=== PATIENT | female | born 1950 | race Caucasian/White ===

== ENCOUNTER 2016-10-12 23:59 | Inpatient (IN) | payer MEDICARE, BC ==
--- NOTE | ~2016-10-12 | CR72 ---
[facility] A Service of [facility] RADIOLOGY TEXT RESULTS PATIENT: GERI SANCHEZ LOCATION: [facility] : 48 UNIT #: [id number] AGE: [address]: Tasha Mehta MD SEX: F ORDER DR: [id number] [facility] [address] [place], [place] [address] [id number] I MR#: [id number] Acc #: [id number] NAME: GERI SANCHEZ. : 1950 SEX: F STUDY DATE/TIME: 10/13/2016 1:33 UNIT: [facility] ROOM: [facility] STUDY DESCRIPTION: CR Chest Single View Portable Attending Physician: Liset Valerio M.D. Ordering Physician: Denny Nj M.D. Primary Care Physician: Denny Bolanos Jr., M.D. MEDICAL IMAGING REPORT This report is preliminary unless electronic signature is present EXAM AP portable chest 10/13/2016 HISTORY Chest pain and bilateral arm pain with bruising tonight. Fell down on driveway. COMPARISON None. FINDINGS There is stable tortuosity and ectasia of the thoracic aorta. Low volume inspiration. No acute airspace disease. Stable mild asymmetric elevation right hemidiaphragm. No pleural effusion or pneumothorax. There is a displaced fracture of the right humeral neck. No definite rib fractures are identified. IMPRESSION 1. Displaced fracture of the right humeral neck. 2. No acute airspace disease. 3. Stable ectasia and tortuosity of the thoracic aorta. Dictated by... Isha Deshpande M.D. THIS IS AN ELECTRONICALLY VERIFIED REPORT Isha Deshpande M.D. at 10/14/2016 10:00 PM [facility]/shraddha TD: 10/13/2016 07:46 JOB #: [id number] [facility] A Service [facility] RADIOLOGY TEXT RESULTS PATIENT: GERI SANCHEZ LOCATION: [facility] : 48 UNIT #: [id number] AGE: [address]: Tasha Mehta MD SEX: F ORDER DR: MEDICAL IMAGING REPORT Page 1 of 1 COPY
--- NOTE | ~2016-10-12 | CO ---
Unit #: [id number] #: [id number] Patient: GERI ALVAREZ [id number] [address] [place], [place] [address] [id number] I MR#: [id number] NAME: GERI ALVAREZ. ROOM: [facility] Age: 65 Sex: F Admission Date: 10/13/2016 : 1950 Attending Physician: Tasha Mehta M.D. Primary Care Physician: Denny Bolanos Jr., M.D. CONSULTATION REPORT CHIEF COMPLAINT Bilateral proximal humerus fractures. HISTORY OF PRESENT ILLNESS Ms. Alvarez is a 65-year-old female who sustained an injury to her bilateral shoulders during a ground level fall on October 12. That evening, she had gone outside to tend to the trash when her cat ran outside. She had picked up the cat and was then headed back inside when the cat jumped out of her arms. She then went to catch the cat again and lost her balance stumbling forward down a slight incline. She ultimately lost balance and fell forward onto her bilateral upper extremities. She was seen in the emergency department where she was diagnosed with bilateral proximal humerus fractures. She is currently examined supine on her hospital bed. She is in slings to the bilateral shoulders. She is complaining of pain in each shoulder which is partially relieved with IV morphine. It is worse with any attempted movement and range of motion of the shoulder. PAST MEDICAL HISTORY 1. Hypertension. 2. Chronic pain disorder. 3. Gastroesophageal reflux. 4. Garza's palsy. 5. Trigeminal neuralgia. 6. Occipital neuralgia. 7. Migraine headache. 8. Essential tremor. PAST SURGICAL HISTORY 1. Right carpal tunnel release. 2. Cholecystectomy. 3. Unspecified bilateral knee surgery. 4. Unspecified lumbar spine surgery. 5. Right shoulder arthroscopic rotator cuff repair. 6. Multiple right ventral hernia repairs. ALLERGIES Reported intolerance to sulfa, Mevacor, oxycodone, and codeine which the latter of which both cause nausea. MEDICATIONS Home medication list is reviewed and includes: 1. Diovan/hydrochlorothiazide. Unit #: [id number] #: [id number] Patient: GERI ALVAREZ 2. Lyrica. 3. Cymbalta. 4. Dulera. 5. Atrovent. 6. Vitamin B12. 7. COQ 10 supplement. 8. Multivitamin. 9. Nfar-pre-vfnnysp potassium supplement. 10. Fish oil. 11. Dymista nasal spray. FAMILY HISTORY Coronary artery disease. SOCIAL HISTORY The patient lives with her and daughter. She has no alcohol or tobacco use. She works in [employer] for [employer]. REVIEW OF SYSTEMS Ten systems are reviewed and negative except as noted in the HPI. PHYSICAL EXAMINATION GENERAL APPEARANCE: Overweight but otherwise healthy-appearing 65-year-old female in slight discomfort but no acute distress. PSYCHIATRIC: Awake, alert, and oriented to person, place, time and situation with normal range of mood and affect. She is appropriately intermittently tearful. HEENT: Normocephalic and atraumatic cranium. Pupils equal, round, and reactive to light. CARDIAC: Regular rate and rhythm. PULMONARY: No increased work of breathing. Symmetric chest rise. ABDOMEN: Obese, nondistended. NEUROLOGIC: Intact median, ulnar, and radial nerve motor and sensory function to the bilateral hands. Musculocutaneous and axillary nerve evaluation is limited secondary to slings and known fracture. SKIN: There is no ecchymosis noted currently. She has slight soft tissue swelling. LYMPATICS: No lymphadenopathy or lymph edema is noted. MUSCULOSKELETAL: She is in slings to the bilateral upper extremities. She is tender over the (1) of the humerus, even to light touch. Further range of motion and exams deferred given the known fractures. DIAGNOSTIC STUDIES LABORATORY: BMP is unremarkable aside from glucose of 158. Hemoglobin 13.4 with a white blood cell count of 5.9. IMAGING: Plain film radiographs reviewed of the left shoulder. She had a left displaced proximal humerus fracture with what appears to be a potentially head-splitting fracture. Plain film radiographs reviewed of the right shoulder. Again, she has a displaced proximal humerus fracture with the shaft translated anterior relative to the head segment, tuberosity segment. Further details limited based on these views. IMPRESSION A 65-year-old female with displaced bilateral proximal humerus fractures. Unit #: [id number] #: [id number] Patient: GERI ALVAREZ PLAN Will obtain a CT scan of both shoulders to evaluate for further detail. Both of these are sufficiently displaced that they will most likely need surgical intervention. The left fracture, in particular, appears to have a head-splitting component and will most likely need an arthroplasty which would be a reverse shoulder arthroplasty. In regard to her right shoulder, there is also significant displacement of a shaft and head segment. She has a history of prior right rotator cuff surgery which may have been a repair. Will further evaluate the morphology of this fracture with CT as well but if she does need an arthroplasty, would again lead towards a reverse shoulder arthroplasty given her history of rotator cuff pathology previously. Will plan for surgical intervention likely this Thursday pending the results of the CT. If she needs an arthroplasty on both shoulders, then we may delay these by two days. At time of discharge, she will need transfer to a subacute rehab facility ultimately. Thank you for the consult. Dictated by... Phi Ontiveros M.D. RADHA/zev TD: 10/13/2016 17:01 JOB #: [id number] CONSULTATION REPORT Page 1 of 1 X Phi Ontiveros MD X CONSULTATION REPORT
--- NOTE | ~2016-10-12 | CR230 ---
[facility] A Service of [facility] RADIOLOGY TEXT RESULTS PATIENT: GERI SANCHEZ LOCATION: [facility] : 46 UNIT #: [id number] AGE: [address]: Tasha Mehta MD SEX: F ORDER DR: [id number] [facility] [address] [place], [place] [address] [id number] I MR#: [id number] Acc #: [id number] NAME: GERI SANCHEZ. : 1950 SEX: F STUDY DATE/TIME: 10/13/2016 1:42 UNIT: C4 ROOM: [facility] STUDY DESCRIPTION: CR Shoulder Min 2 View Rt Attending Physician: Liset Valerio M.D. Ordering Physician: Denny Nj M.D. Primary Care Physician: Denny Bolanos Jr., M.D. MEDICAL IMAGING REPORT This report is preliminary unless electronic signature is present EXAM Right shoulder 3 views 10/13/2016 HISTORY Right shoulder pain. Fell down on driveway tonight. COMPARISON None. FINDINGS Transversely oriented displaced fracture of the right humeral neck. The humeral shaft is displaced in a volar direction with respect to the humeral head. The humeral head remains appropriately located within the glenohumeral fossa. No acromioclavicular or coracoclavicular separation is evident. Imaged right ribs appear intact. IMPRESSION Displaced fracture of the right humeral neck. Humeral head remains appropriately located within the glenohumeral fossa. Dictated by... Isha Deshpande M.D. THIS IS AN ELECTRONICALLY VERIFIED REPORT Isha Deshpande M.D. at 10/14/2016 10:00 PM [facility]/shraddha TD: 10/13/2016 07:48 JOB #: [id number] MEDICAL IMAGING REPORT [facility] A Service [facility] RADIOLOGY TEXT RESULTS PATIENT: GERI SANCHEZ LOCATION: [facility] : 48 UNIT #: [id number] AGE: [address]: Tasha Mehta MD SEX: F ORDER DR: Page 1 of 1 COPY
--- NOTE | ~2016-10-12 | OR ---
Unit #: [id number] #: [id number] Patient: GERI ALVAREZ [id number] [address] [address] [id number] I MR#: [id number] NAME: GERI ALVAREZ. ROOM: [facility] Date of Procedure: 10/15/2016 Admission Date: 10/13/2016 Surgeon: Phi Ontiveros M.D. : 1950 [employer] Coach(s): Kailey Knight APRN, ONFA Attending Physician: Tasha Mehta M.D. Primary Care Physician: Denny Bolanos Jr., M.D. PROCEDURE OPERATIVE NOTE PREOPERATIVE DIAGNOSIS Left four part proximal humerus fracture. POSTOPERATIVE DIAGNOSIS Left four part proximal humerus fracture. PROCEDURE PERFORMED 1. Left reverse shoulder arthroplasty. 2. Left shoulder biceps tenodesis. IMPLANTS 1. DJO Surgical AltiVate size 10 Press-Fit humeral stem with a size 10 cement restrictor. 2. DJO Surgical 32, +4 humeral lathe hand. 3. DJO Surgical P2 base plate with a 32, -4 glenosphere. ANESTHESIA General with interscalene nerve block. ESTIMATED BLOOD LOSS 200 mL. DRAINS Medium Hemovac x1. COMPLICATIONS None apparent. INDICATIONS Ms. Alvarez is a 65-year-old female who sustained an injury to her bilateral shoulders in a ground level fall. She has a comminuted four part proximal humerus fracture on the left with a head splitting component to this. We discussed reversed shoulder arthroplasty. She elects to proceed. So we discussed ORIF versus reverse shoulder arthroplasty. At this point she elects to proceed. Risks, benefits and alternatives have been reviewed. DESCRIPTION OF PROCEDURE The patient was identified in the preoperative holding area. The operative site was marked. Preoperative antibiotics were administered. A preoperative regional anesthetic block was performed. The patient was brought to the operating room, supine on her hospital bed. A general Unit #: [id number] #: [id number] Patient: GERI ALVAREZ anesthetic was induced in the hospital bed and then she was transferred to the operative table. She was positioned on the beach-chair and then placed into the beach-chair position. The left upper extremity was then prepped and draped in sterile fashion. A deltopectoral approach was performed. The cephalic vein was taken laterally with the deltoid. The subdeltoid space was developed and the fracture fragments were readily identifiable. The conjoined tendon was identified, as well as the underlying subscapularis. Tag and sutures were placed in the lesser tuberosity at the subscapularis, as well as in the greater tuberosity. There were multiple comminuted fragments in the greater tuberosity. These were removed. There was a substantial amout of head actually in the lesser tuberosity segment. This was removed with a saw to cut essentially the head segment from the tuberosity. A rongeur was then used to further trim down the lesser tuberosity. The head segment itself was then identified. This was loosely in proximity to the greater tuberosity but was removed off of the greater tuberosity without any need for an osteotome or saw. This was then inspected. Again there had been a split through approximately 25% to 30% of the head. We then continued with our plan for reverse shoulder arthroplasty. Any remaining loose fragments of bone were retrieved from the glenohumeral joint. Attention was then turned to exposure of the humeral shaft. The shaft was sized up to a size 10 handle machine operator. A 12 did not fit slightly between the 10 and 12. We then placed the broaches and we were unable to achieve any satisfactory Press-fit with a size 10 broach but a 12 would not fit. We therefore, elected to plan to cement the humeral stem. As high as 10 cement restrictor was placed. We selected the size 10 cemented and this still gave us room for cement mantle distally. The shaft was then subluxed more inferior and posterior and attention turned to the glenoid. The glenoid was easily exposed given the fractured tuberosities and removed head segment. The labrum was removed circumferentially. The centering hole was then drilled, followed by insertion of reaming tap. We reamed it down to desired depth of bleeding subchondral bone. We then placed the P2 baseplate and achieved excellent purchase. We placed four peripheral locking screws including 26 mm screws superiorly and inferiorly and 14 mm screws anteriorly and posteriorly. The real 32, -4 glenosphere was then packed into place. Attention was then turned back to the humerus. The humerus was prepared for cementing. The cement was mixed and finger packed into the humeral canal. The proximal portion of this was then removed and the bone graft placed around the proximal portion. The humeral stem was then impacted in place and held in desired version while the cement was allowed to cure. We had good fill of bone graft around the proximal stem and no cement was visible here. Once the cement was cured, attention was turned to trialing. We ultimately selected a +4 humeral component. This was impacted in place. Sutures were then passed through the suture holes in the humeral stem for tuberosity repair. The greater and lesser tuberosities were repaired back to a stem, as well as to one another. The arm was taken through a range of motion. The tuberosity was repaired with staple and the shoulder with staple. The wound was then irrigated with pulsatile lavage. A subdeltoid drain was placed. The wound was closed in a layered fashion with 0 Vicryl, 2-0 Vicryl and an running Monocryl on the skin. Steri-Strips and sterile dressings were applied. DISPOSITION Stable to the recovery room. Unit #: [id number] #: [id number] Patient: GERI ALVAREZ Dictated by... Jessica Ramos/kathia TD: 10/16/2016 07:27 JOB #: [id number] PROCEDURE OPERATIVE NOTE Page 1 of 1 X Phi Ontiveros MD X PROCEDURE OPERATIVE NOTE
--- NOTE | ~2016-10-12 | CR132 ---
[facility] A Service of [facility] RADIOLOGY TEXT RESULTS PATIENT: GERI SANCHEZ LOCATION: [place] [address]- : [birth year] UNIT #: [id number] AGE: [address]: Tasha Mehta MD SEX: F ORDER DR: [id number] [facility] [address] [place], [place] [address] [id number] I MR#: [id number] Acc #: [id number] NAME: GERI SANCHEZ. : 1950 SEX: F STUDY DATE/TIME: 10/13/2016 1:56 UNIT: [facility] ROOM: [facility] STUDY DESCRIPTION: CR Forearm 2 View Lt Attending Physician: Liset Valerio M.D. Ordering Physician: Denny Nj M.D. Primary Care Physician: Denny Bolanos Jr., M.D. MEDICAL IMAGING REPORT This report is preliminary unless electronic signature is present EXAM 2 views left forearm. DATE: 10/13/2016 HISTORY Fell on driveway tonight. Bilateral arm pain. FINDINGS Standard lateral view was not obtained. However, no gross elbow joint dislocation is seen and the wrist joint appears intact. No fracture or dislocation or significant osteoarthritic change is identified. IMPRESSION No acute abnormality is seen within the left forearm. Dictated by... Isha Deshpande M.D. THIS IS AN ELECTRONICALLY VERIFIED REPORT Isha Deshpande M.D. at 10/14/2016 10:00 PM [facility]/timbo TD: 10/13/2016 07:37 JOB #: [id number] MEDICAL IMAGING REPORT Page 1 of 1 COPY
--- NOTE | ~2016-10-12 | CT130 ---
[facility] A Service of [facility] & [facility] RADIOLOGY TEXT RESULTS PATIENT: GERI SANCHEZ LOCATION: [facility] 449-01 : [birth year] UNIT #: [id number] AGE: [address]: Tasha Mehta MD SEX: F ORDER DR: [id number] [facility] [address] [place], [place] [address] [id number] I MR#: [id number] Acc #: [id number] NAME: GERI SANCHEZ. : 1950 SEX: F STUDY DATE/TIME: 10/13/2016 17:46 UNIT: [facility] ROOM: [facility] STUDY DESCRIPTION: CT Upper Ext Rt Wo Cont Attending Physician: Tasha Mehta M.D. Ordering Physician: Zaki Norman M.D. Primary Care Physician: Denny Bolanos Jr., M.D. MEDICAL IMAGING REPORT This report is preliminary unless electronic signature is present EXAM CT right shoulder, 10/13 INDICATIONS Right shoulder fracture after fall today. Abnormal radiographs today. Shoulder pain. Patient unable to move arms. TECHNIQUE Axial images were obtained through the right shoulder without contrast. Multiplanar reformats were obtained. Comparison made with radiographs from the same day. This CT exam was performed with one or more of the following radiation dose reduction techniques: Automatic exposure control, adjustment of mA and/or kV according to patient size, and iterative reconstruction. FINDINGS There is an impacted fracture of the proximal humerus. The diaphysis is impacted at the level of the surgical neck. The diaphysis is displaced in the anterior direction relative to the humeral head by nearly one shaft width. There is a comminuted fracture of the humeral head, which involves the articular surface. There is some medial rotation of the humeral head relative to its anatomic location. The fracture extends to involve the greater tuberosity. There is no AC joint separation, although there is some AC joint arthropathy. There is no scapular or glenoid fracture. Lung windows demonstrate presumed bilateral atelectasis. IMPRESSION There is an impacted fracture of the proximal humerus. The predominant fracture is across the surgical neck. The diaphysis is displaced in the anterior direction by nearly one shaft width relative to the rest of the humeral head. The comminuted fracture involves the articular surface and extends through the greater tuberosity. No dislocation is seen, but the [facility] A Service of [facility] RADIOLOGY TEXT RESULTS PATIENT: GERI SANCHEZ LOCATION: [facility] 449-01 : [birth year] UNIT #: [id number] AGE: [address]: Tasha Mehta MD SEX: F ORDER DR: humeral head is rotated medially and probably posteriorly as well relative to its expected anatomic location. No other acute fractures are seen. There is some AC joint arthropathy. Dictated by... Luis Manuel Cali Jr., M.D. THIS IS AN ELECTRONICALLY VERIFIED REPORT Luis Manuel Cali Jr., M.D. at 10/13/2016 10:28 PM [facility]/angelica TD: 10/13/2016 22:11 JOB #: [id number] MEDICAL IMAGING REPORT Page 1 of 1 COPY
--- NOTE | ~2016-10-12 | US6 ---
[facility] A Service of [facility] & [facility] RADIOLOGY TEXT RESULTS PATIENT: GERI SANCHEZ [address] [birth year] UNIT #: [id number] AGE: [address]: Tasha Mehta MD SEX: F ORDER DR: [id number] [facility] [address] [place], [place] [address] [id number] I MR#: [id number] Acc #: [id number] NAME: GERI SANCHEZ. : 1950 SEX: F STUDY DATE/TIME: 10/14/2016 8:09 UNIT: C4B ROOM: [facility] STUDY DESCRIPTION: US Abdominal Limited Attending Physician: Tasha Mehta M.D. Ordering Physician: Tasha Mehta M.D. Primary Care Physician: Denny Bolanos Jr., M.D. MEDICAL IMAGING REPORT This report is preliminary unless electronic signature is present EXAM Right upper quadrant ultrasound, 10/14/2016. HISTORY Elevated LFTs. Admitted for 2 broken shoulders. TECHNIQUE Real-time ultrasonography right upper quadrant performed. FINDINGS The pancreas is obscured by bowel gas artifact. The liver appears of increased echogenicity. This suggests fatty infiltration. No focal hepatic parenchymal abnormality is seen. The portal vein appears grossly patent, but is poorly visualized. The liver is enlarged measuring 22 cm in craniocaudal extent. Status post cholecystectomy. Common bile duct measures up to about 1 cm in diameter, within normal limits, given the prior cholecystectomy. No intrahepatic biliary ductal dilatation. The right kidney measures 9.9 cm in greatest length. No hydronephrosis or nephrolithiasis. No cystic or solid mass lesion and no perinephric fluid collection. IMPRESSION 1. Liver is enlarged, diffusely increased in parenchymal echogenicity consistent with diffuse fatty infiltration. No focal parenchymal abnormality is seen. 2. Status post cholecystectomy. No intrahepatic biliary ductal dilatation. The extrahepatic duct is prominent at about 1 cm in diameter. This is felt to be within normal limits given prior cholecystectomy. Correlate with laboratory data and clinical presentation. 3. Right kidney normal. 4. Pancreas not visualized due to bowel gas obscuration. Pancreas could be further evaluated with CT if it would assist in clinical STS. [facility] A Service of [facility] & [facility] RADIOLOGY TEXT RESULTS PATIENT: GERI SANCHEZ LOCATION: [address] : [birth year] UNIT #: [id number] AGE: [address]: Tasha Mehta MD SEX: F ORDER DR: management. Dictated by... Denny Quinn M.D. THIS IS AN ELECTRONICALLY VERIFIED REPORT Denny Quinn M.D. at 10/15/2016 6:26 PM KEVON/anson TD: 10/14/2016 12:27 JOB #: [id number] MEDICAL IMAGING REPORT Page 1 of 1 COPY
--- NOTE | ~2016-10-12 | CT52 ---
[facility] A Service of [facility] RADIOLOGY TEXT RESULTS PATIENT: GERI SANCHEZ LOCATION: C4B : 48 UNIT #: [id number] AGE: [address]: Tasha Mehta MD SEX: F ORDER DR: [id number] [facility] [address] [place], [place] [address] [id number] I MR#: [id number] Acc #: [id number] NAME: GERI SANCHEZ. : 1950 SEX: F STUDY DATE/TIME: 10/13/2016 2:41 UNIT: [facility] ROOM: [facility] STUDY DESCRIPTION: CT Cervical Spine Wo Cont Attending Physician: Liset Valerio M.D. Ordering Physician: Denny jN M.D. Primary Care Physician: Denny Bolanos Jr., M.D. MEDICAL IMAGING REPORT This report is preliminary unless electronic signature is present EXAM CT cervical spine without contrast DATE: 10/13/2016 HISTORY Headache, neck pain. Bilateral shoulder pain after falling down on driveway tonight. COMPARISON None. PROCEDURE 2 mm noncontrast axial images through the cervical spine. Sagittal and coronal reformatted images were obtained. The CT exam was performed with one or more of the following radiation dose reduction techniques: automatic exposure control, adjustment of mA and/or kV according to patient size, and iterative reconstruction. FINDINGS Multilevel advanced degenerative changes are present within the cervical spine, but no acute cervical spine fracture or subluxation is seen. The craniocervical junction appears intact. Varying degrees of canal or foraminal stenosis are present due to the presence of posterior disc osteophyte formation, facet arthropathy and uncovertebral spurring. Imaged paraspinal soft tissues appear within normal limits. IMPRESSION Moderately advanced degenerative changes of the cervical spine. No acute cervical spine fracture or subluxation is seen. [facility] A Service of [facility] & [facility] RADIOLOGY TEXT RESULTS PATIENT: GERI SANCHEZ LOCATION: B : 48 UNIT #: [id number] AGE: [address]: Tasha Mehta MD SEX: F ORDER DR: Dictated by... Isha Deshpande M.D. THIS IS AN ELECTRONICALLY VERIFIED REPORT Isha Deshpande M.D. at 10/14/2016 10:01 PM [facility]/timbo TD: 10/13/2016 07:53 JOB #: [id number] MEDICAL IMAGING REPORT Page 1 of 1 COPY
--- NOTE | ~2016-10-12 | CT71 ---
[facility] A Service of [facility] RADIOLOGY TEXT RESULTS PATIENT: GERI SANCHEZ LOCATION: [facility] 449-01 : 48 UNIT #: [id number] AGE: [address]: Tasha Mehta MD SEX: F ORDER DR: [id number] [facility] [address] [place], [place] [address] [id number] I MR#: [id number] Acc #: [id number] NAME: GERI SANCHEZ. : 1950 SEX: F STUDY DATE/TIME: 10/13/2016 2:11 UNIT: [facility] ROOM: [facility] STUDY DESCRIPTION: CT Head Wo Contrast Attending Physician: Liset Valerio M.D. Ordering Physician: Denny Nj M.D. Primary Care Physician: Denny Bolanos Jr., M.D. MEDICAL IMAGING REPORT This report is preliminary unless electronic signature is present EXAM CT head without contrast Date: 10/13/2016 HISTORY 65-year-old female who fell on driveway tonight. Headache. Neck pain. Bilateral shoulder pain. COMPARISON Noncontrast CT head 01/02/2006. This CT exam was performed with one or more of the following radiation dose reduction techniques: automatic exposure control, adjustment of mA and/or kV according to patient size, and iterative reconstruction. FINDINGS No acute intracranial hemorrhage, mass lesion, mass effect or midline shift is seen. There is no evidence of acute or evolving infarct. Ventricular configuration is within normal limits. No displaced calvarial fracture is identified. Major paranasal sinuses and mastoid air cells are clear. Mild intracranial carotid artery calcifications are present. IMPRESSION No acute intracranial findings. Dictated by... Isha Deshpande M.D. THIS IS AN ELECTRONICALLY VERIFIED REPORT Isha Deshpande M.D. at 10/14/2016 10:01 PM AYAH/ban [facility] A Service [facility] RADIOLOGY TEXT RESULTS PATIENT: GERI SANCHEZ LOCATION: C4B 449-01 : 48 UNIT #: [id number] AGE: [address]: Tasha Mehta MD SEX: F ORDER DR: TD: 10/13/2016 07:46 JOB #: [id number] MEDICAL IMAGING REPORT Page 1 of 1 COPY
--- NOTE | ~2016-10-12 | OR ---
Unit #: [id number] #: [id number] Patient: GERI ALVAREZ [id number] [address] [address] [id number] I MR#: [id number] NAME: GERI ALVAREZ ROOM: [facility] Date of Procedure: 10/17/2016 Admission Date: 10/13/2016 Surgeon: Phi Ontiveros M.D. : 1950 Attending Physician: Tasha Mehta M.D. Primary Care Physician: Denny Bolanos Jr., M.D. OPERATIVE REPORT PREOPERATIVE DIAGNOSIS Right displaced three-part proximal humerus fracture. POSTOPERATIVE DIAGNOSIS Right displaced three-part proximal humerus fracture. PROCEDURE PERFORMED Right reverse shoulder arthroplasty. IMPLANTS 1. DJO Surgical size 10 cemented Altivate stem with a 36, neutral humeral socket liner. 2. DJO Surgical P2 base plate with a 36, -4 Glenosphere. TEAM MEMBER Kailey Knight. ANESTHESIA General with interscalene block. ESTIMATED BLOOD LOSS 650 mL. DRAINS Medium Hemovac x1. COMPLICATIONS None apparent. INDICATIONS FOR PROCEDURE Ms. Alvarez is a 65-year-old female with bilateral displaced proximal humerus fractures. On the right side, she had a three versus four part fracture. We discussed an ORIF versus reverse shoulder arthroplasty. Her CT scan was inconclusive for determination of the fracture being amenable to fixation versus requiring an arthroplasty. DESCRIPTION OF PROCEDURE The patient was identified in the preoperative holding area. The operative site was marked. A regional anesthetic block was performed. Preoperative antibiotics were administered. The patient was brought to the operating room and placed supine on the operating table. A general anesthetic was induced. The patient was then positioned in the Unit #: [id number] #: [id number] Patient: GERI ALVAREZ beach-chair position. The right upper extremity was prepped and draped in sterile fashion. An incision was made anteriorly over the deltopectoral interval. Dissection was carried down to the subcutaneous tissues to the deltopectoral interval itself. The cephalic vein was retracted medially with the pectoralis major muscle. The subdeltoid space was developed. A self-retaining retractor was placed under the deltoid and pectoralis. The fracture was then inspected. This was not amenable to an open reduction and internal fixation. We elected to proceed with reverse shoulder arthroplasty. The fracture line was completed through the bicipital groove exposing the lesser tuberosity. The head was actually fractured as well with a separate fragment displaced medially and inferiorly. This was retrieved with a pituitary. The remaining portion of the head was in proximity to the greater tuberosity and was removed as well. The tuberosity segments were then debrided back down to smaller fragments. Multiple comminuted fragments of bone were removed as well. Attention was then turned to exposure of the shaft. The shaft was exposed and hand reamed to a size 12. We turned our attention back to the glenoid. Easy glenoid exposure was afforded by the fracture. Retractors were placed and the labrum removed. Any remaining capsular tissue was released to facilitate exposure. We then drilled the centering hole and inserted the reaming tap. We then reamed through the starter and small reamers. The base plate was then inserted and achieved solid purchase. Four peripheral locking screws were placed. We then trialed the components and ultimately selected a 32, -4 Glenosphere. This was impacted in place and the set screw secured. Attention was turned back to the humerus. Final preparations were made for cementing. Additionally, further tagging sutures were then placed in the tuberosities. We had placed 2 FiberTapes around the greater tuberosity and one FiberTape in the lesser tuberosity. A size 12 cement restrictor was then placed in the humeral canal. We then filled the canal with cement followed by bone graft. The stem was then impacted in place with a good rim of bone graft proximally around the stem. The stem was held in desired position until the cement was allowed to cure. The sutures were then passed for the tuberosity repair. The shoulder was then reduced. The greater tuberosity was then secured with the two FiberTape sutures securing the tuberosity to the stem. The lesser tuberosity was then secured with one FiberTape to the stem. The cerclage suture and the medial suture hole of the stem was then used to cerclage the entire construct together. We then finished this with FiberWire suture side to side in the tuberosities. The arm was taken through range of motion. The tuberosity repair was stable. The wound was then irrigated with pulsatile lavage. A subdeltoid drain was placed and the wound was closed with 0 Vicryl, 2-0 Vicryl, and Monocryl in the skin. Steri-Strips and sterile dressings were applied. DISPOSITION Stable to the recovery room. Dictated by... Phi Ontiveros M.D. RADHA/parish TD: 10/17/2016 12:15 Unit #: [id number] #: [id number] Patient: GERI ALVAREZ JOB #: [id number] OPERATIVE REPORT Page 1 of 1 X Phi Ontiveros MD X PROCEDURE OPERATIVE NOTE
--- NOTE | ~2016-10-12 | EKG ---
PATIENT: GERI SANCHEZ UNIT #: [id number] Ventricular Rate: 103 BPM Atrial Rate: 103 BPM P-R Interval: 170 ms QRS Duration: 72 ms Q-T Interval: 332 ms QTC Calculation(Bezet): 434 ms P Jackson: 55 degrees Calculated R Jackson: 15 degrees Calculated T Jackson: 17 degrees Diagnosis Line: Sinus tachycardia Diagnosis Line: Otherwise normal ECG Diagnosis Line: When compared with ECG of 05-FEB-2016 11:13, Diagnosis Line: Criteria for Inferior infarct are no longer Diagnosis Line: Present Diagnosis Line: Confirmed by ERNESTINA BROWN MD ([id number]) on 10/19/2016 Diagnosis Line: 8:27:59 PM INTERPRETING MD: STEPHANIE MOLINA
--- NOTE | ~2016-10-12 | CT127 ---
[facility] A Service of [facility] & [facility] RADIOLOGY TEXT RESULTS PATIENT: GERI SANCHEZ LOCATION: C4B [address] : 48 UNIT #: [id number] AGE: [address]: Tasha Mehta MD SEX: F ORDER DR: [id number] [facility] [address] [place], [place] [address] [id number] I MR#: [id number] Acc #: [id number] NAME: GERI SANCHEZ. : 1950 SEX: F STUDY DATE/TIME: 10/13/2016 17:46 UNIT: C4B ROOM: [facility] STUDY DESCRIPTION: CT Upper Ext Lt Wo Cont Attending Physician: Tasha Mehta M.D. Ordering Physician: Zaki Norman M.D. Primary Care Physician: Denny Bolanos Jr., M.D. MEDICAL IMAGING REPORT This report is preliminary unless electronic signature is present EXAM CT left shoulder, 10/13 INDICATIONS Shoulder fracture after fall today. Shoulder pain. Patient unable to move arms. Abnormal radiographs today. TECHNIQUE Axial images were obtained through the left shoulder without contrast. Multiplanar reformats were obtained. Comparison is made with radiographs from the same day. This CT exam was performed with one or more of the following radiation dose reduction techniques: Automatic exposure control, adjustment of mA and/or kV according to patient size, and iterative reconstruction. FINDINGS As seen on the radiographs, there is a comminuted, impacted proximal humerus fracture on the left side. Primary fracture is at the surgical neck of the humerus. This results in anterior displacement of the diaphysis relative to the humeral head by about one shaft width. There is subsequent posterior rotation of the primary humeral head fragments. The fracture extends through the greater tuberosity as well as through the medial articular surface of the humeral head. Fracture is similar in appearance but probably slightly worsened relative to the fracture on the right side seen by CT today. There is AC joint arthropathy, but there is no AC joint separation. There is no glenohumeral dislocation. There is no scapula or bony glenoid fracture. Note is made of atelectatic changes in the lungs. IMPRESSION Comminuted, impaction fracture of the left proximal humerus. The fracture predominantly extends across the surgical neck. The diaphysis is STS. [facility] A Service of [facility] RADIOLOGY TEXT RESULTS PATIENT: GERI SANCHEZ LOCATION: C4B 449-01 : 48 UNIT #: [id number] AGE: [address]: Tasha Mehta MD SEX: F ORDER DR: displaced in the anterior direction by about one shaft width. Humeral head is markedly comminuted involving the greater tuberosity as well as the medial articular surface. There is some posterior rotation of the humeral head relative to the glenoid. No additional fractures are seen. Dictated by... Luis Manuel Cali Jr., M.D. THIS IS AN ELECTRONICALLY VERIFIED REPORT Luis Manuel Cali Jr., M.D. at 10/13/2016 10:44 PM SADIA/angelica TD: 10/13/2016 22:22 JOB #: [id number] MEDICAL IMAGING REPORT Page 1 of 1 COPY
--- NOTE | ~2016-10-12 | CO ---
Unit #: [id number] #: [id number] Patient: GERI ALVAREZ [id number] [address] [place], [place] [address] [id number] I MR#: [id number] NAME: GERI ALVAREZ. ROOM: [facility] Age: 65 Sex: F Admission Date: 10/13/2016 : 1950 Attending Physician: Tasha Mehta M.D. Primary Care Physician: Denny Bolanos Jr., M.D. CONSULTATION REPORT HISTORY OF PRESENT ILLNESS Ms. Alvarez is a 65-year-old white female who has a history of hypertension, chronic pain, morbid obesity, asthma, who was admitted with bilateral humeral neck fractures after a fall. She was admitted to the hospital on the first of October and this morning underwent repair of left humeral fracture. Postoperative, we were asked to see for postop respiratory failure. She required 50% Venturi mask to maintain saturations of 92%. She was also noted to be slightly hypotensive and was started on IV fluids and Matthew. We were asked to see. 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 PAST SURGICAL HISTORY Cholecystectomy, bilateral breast biopsy, knee surgery, back surgery, ventral hernia repairs, arthroscopic rotator cuff repair. SOCIAL HISTORY The patient lives with and daughter. Lifelong nonsmoker. No alcohol. No illicit drugs. FAMILY HISTORY Coronary artery disease. ALLERGIES Sulfa, Mevacor, oxycodone and codeine cause nausea. CURRENT MEDICATIONS 1. Atrovent nasal spray. 2. Tylenol. 3. Lovenox. 4. Lyrica. 5. Zofran. 6. Diphenhydramine. 7. Phenergan. 8. Dulera. 9. Bisacodyl. 10. Docusate. 11. Milk of Magnesia. 12. MiraLax. 13. Hydromorphone. Unit #: [id number] #: [id number] Patient: GERI ALVAREZ 14. Roxicodone. 15. B12. 16. IV fluids. 17. Keflex. REVIEW OF SYSTEMS Bilateral shoulder pain after a fall. Multiple other surgeries. Chronic pain. GERD. DJD. 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 Hypertension. Trigeminal neuralgia. Occipital neuralgia. Migraines. Essential tremor. Otherwise, review of systems negative. Generally, no shortness of breath. The patient does have a history of low oxygen levels after anesthesia or pain medicines. The patient is unaware if she snores. She does admit to daytime sleepiness. PHYSICAL EXAMINATION GENERAL APPEARANCE: Obese female in no distress. VITAL SIGNS: Blood pressure 124/57. Pulse 115. Respiratory rate 18. Afebrile. O2 sat 92% oximizer. HEENT: Normocephalic, atraumatic. Pupils equal, round, reactive. Sclerae are nonicteric. Nasal passages patent. Posterior pharynx crowded. Mallampati 4. NECK: Thick. Supple. Trachea midline. LUNGS: Fairly clear anterior and laterally. CARDIAC: Regular rate and rhythm. Could not appreciate murmur, rub or gallop. ABDOMEN: Nontender. Bowel sounds present. No hepatosplenomegaly. EXTREMITIES: Without clubbing, cyanosis or edema. Postop left shoulder surgery. DIAGNOSTIC STUDIES LABORATORY: Arterial blood gas: pH 7.38, pCO2 47, pO2 63 on 50% Venturi mask. Chemistries: Sodium 129, potassium 3.8, creatinine 0.9. AST, ALT and alkaline phosphatase elevated at 163, 506 and 133. White count 8,300, hematocrit 34.9. IMPRESSION 1. Acute hypoxemic respiratory failure. 2. Postop left humeral surgery. 3. Asthma. 4. Probable obstructive sleep apnea. 5. Hypotension, currently resolved. 6. Hypertension. PLAN O2. Monitor for sleep apnea. IV fluids. Pulmonary hygiene with incentive spirometer. DuoNeb. DVT prophylaxis. We will follow. Dictated by... Alon Moyer M.D. ANABELL/andrew TD: 10/16/2016 10:20 JOB #: [id number] Unit #: [id number] #: [id number] Patient: GERI ALVAREZ CONSULTATION REPORT Page 1 of 1 X Alon Moyer MD CONSULTATION REPORT
--- NOTE | ~2016-10-12 | CR230 ---
[facility] [[email or web address] A Service of [facility] & [facility] RADIOLOGY TEXT RESULTS PATIENT: GERI SANCHEZ LOCATION: [address] : [birth year] UNIT #: [id number] AGE: [address]: Tasha Mehta MD SEX: F ORDER DR: [id number] [facility] [address] [place], [place] [address] [id number] I MR#: [id number] Acc #: [id number] NAME: GERI SANCHEZ. : 1950 SEX: F STUDY DATE/TIME: 10/17/2016 12:45 UNIT: [facility] ROOM: [facility] STUDY DESCRIPTION: CR Shoulder Min 2 View Rt Attending Physician: Tasha Mehta M.D. Ordering Physician: Tasha Mehta M.D. Primary Care Physician: Denny Bolanos Jr., M.D. MEDICAL IMAGING REPORT This report is preliminary unless electronic signature is present EXAM Right shoulder series, 10/17/2016. HISTORY Postop. TECHNIQUE AP and transscapular views of the right shoulder are presented. FINDINGS Status post right shoulder arthroplasty. Orthopedic hardware normally located and aligned. [place] bony structures show no acute nonsurgical abnormality. Surgical drain in the operative bed. Soft tissue swelling in operative bed. Right internal jugular central venous catheter terminating in the upper superior vena cava. Lung volumes low with bronchovascular crowding. No clear indication of acute disease in the right lung. The visualized right bony thorax is unremarkable. Dictated by... Denny Quinn M.D. THIS IS AN ELECTRONICALLY VERIFIED REPORT Denny Quinn M.D. at 10/17/2016 6:48 PM KEVON/mariana TD: 10/17/2016 15:38 JOB #: [id number] MEDICAL IMAGING REPORT Page 1 of 1 COPY
--- NOTE | ~2016-10-12 | BMI ---
[facility] Nutrition Therapy DATE: 10/13/16 Patient: GERI SANCHEZ Physician: KRISTIE Address: [address] [place] [address] Room/Bed: [address] [place] [address], Zip: [place] [address] Admit Date: 10/13/16 Date of : [birth year] Height: 5 1 Weight: 236 107.1 HIGH BMI NOTE: ANTHROPOMETRICS: HT: 61" WT: 107.1 KG BMI: 44 INTERVENTION: 1. HEART HEALTHY DIET RECOMMENDATIONS: 1. CONTINUE CURRENT DIET IN ORDER TO PROMOTE GRADUAL WEIGHT LOSS. Respectfully, ANGY COHN RD, LD [facility] cc: client file
--- NOTE | ~2016-10-12 | CR72 ---
[facility] A Service of [facility] RADIOLOGY TEXT RESULTS PATIENT: GERI SANCHEZ LOCATION: [place] [address] : [birth year] UNIT #: [id number] AGE: [address]: Tasha Mehta MD SEX: F ORDER DR: [id number] [facility] [address] [place], [place] [address] [id number] I MR#: [id number] Acc #: [id number] NAME: GERI SANCHEZ. : 1950 SEX: F STUDY DATE/TIME: 10/16/2016 10:48 UNIT: [facility] ROOM: [facility] STUDY DESCRIPTION: CR Chest Single View Portable Attending Physician: Tasha Mehta M.D. Ordering Physician: Alon Moyer M.D. Primary Care Physician: Denny Bolanos Jr., M.D. MEDICAL IMAGING REPORT This report is preliminary unless electronic signature is present EXAM Portable chest HISTORY Hypoxia, history of asthma, shortness of air. COMPARISON 10/15/2016 FINDINGS A portable view of the chest demonstrates low lung volumes. Probable small amount of left basilar atelectasis. No sizeable effusions. Heart and mediastinum remarkable for mild aortic atherosclerotic changes and tortuosity. No sizeable effusions or pneumothorax. Left shoulder total arthroplasty. Dictated by... Rayray Storm M.D. THIS IS AN ELECTRONICALLY VERIFIED REPORT Rayray Storm M.D. at 10/16/2016 5:28 PM Dale TD: 10/16/2016 12:17 JOB #: [id number] MEDICAL IMAGING REPORT Page 1 of 1 COPY
--- NOTE | ~2016-10-12 | CR157 ---
[facility] A Service of [facility] RADIOLOGY TEXT RESULTS PATIENT: GERI SANCHEZ LOCATION: [facility] 449-01 : [birth year] UNIT #: [id number] AGE: [address]: Tasha Mehta MD SEX: F ORDER DR: [id number] [facility] [address] [place], [place] [address] [id number] I MR#: [id number] Acc #: [id number] NAME: GERI SANCHEZ. : 1950 SEX: F STUDY DATE/TIME: 10/13/2016 1:36 UNIT: [facility] ROOM: [facility] STUDY DESCRIPTION: CR Humerus Min 2 View Rt Attending Physician: Liset Valerio M.D. Ordering Physician: Denny Nj M.D. Primary Care Physician: Denny Bolanos Jr., M.D. MEDICAL IMAGING REPORT This report is preliminary unless electronic signature is present EXAM 2 views right humerus. DATE: 10/13/2016 HISTORY Right humerus pain after falling down on driveway tonight. COMPARISON: Right shoulder radiographs 10/13/2016 FINDINGS Transversely origin displaced fracture of the right humeral neck. The humeral shaft is displaced in the anterior direction with respect to the humeral head. No gross glenohumeral joint dislocation is identified. Elbow joint appears intact. Imaged right ribs appear intact. IMPRESSION 1. Transversely oriented displaced fracture of the right humeral neck without gross glenohumeral joint dislocation. Elbow joint appears intact. Dictated by... Isha Deshpande M.D. THIS IS AN ELECTRONICALLY VERIFIED REPORT Isha Deshpande M.D. at 10/14/2016 10:00 PM [facility]/timbo TD: 10/13/2016 07:35 JOB #: [id number] MEDICAL IMAGING REPORT Page 1 of 1 COPY
--- NOTE | ~2016-10-12 | CR71 ---
[facility] A Service of [facility] & [facility] RADIOLOGY TEXT RESULTS PATIENT: GERI SANCHEZ LOCATION: [address] : [birth year] UNIT #: [id number] AGE: [address]: Tasha Mehta MD SEX: F ORDER DR: [id number] [facility] [address] [place], [place] [address] [id number] I MR#: [id number] Acc #: [id number] NAME: GERI SANCHEZ. : 1950 SEX: F STUDY DATE/TIME: 10/15/2016 14:38 UNIT: C4B [facility] STUDY DESCRIPTION: CR Chest Single View Attending Physician: Tasha Mehta M.D. Ordering Physician: Tasha Mehta M.D. Primary Care Physician: Denny Bolanos Jr., M.D. MEDICAL IMAGING REPORT This report is preliminary unless electronic signature is present EXAM Portable chest, 10/15 COMPARISON 10/13 HISTORY Shortness of air, acute respiratory failure starting today. FINDINGS A portable view of the chest was obtained. There are low lung volumes without definite infiltrates. There may be some mild left base atelectasis. There is a left shoulder prosthesis present. IMPRESSION Low lung volumes with possible mild left base atelectasis, otherwise no active disease. Dictated by... Tim Knapp M.D. THIS IS AN ELECTRONICALLY VERIFIED REPORT Tim Knapp M.D. at 10/16/2016 7:13 AM CLAUDIA/christiano TD: 10/15/2016 16:23 JOB #: [id number] MEDICAL IMAGING REPORT Page 1 of 1 COPY
--- NOTE | ~2016-10-12 | CR229 ---
[facility] of [facility] RADIOLOGY TEXT RESULTS PATIENT: GERI SANCHEZ LOCATION: [facility] 449-01 : [birth year] UNIT #: [id number] AGE: [address]: Tasha Mehta MD SEX: F ORDER DR: [id number] [facility] [address] [place], [place] [address] [id number] I MR#: [id number] Acc #: [id number] NAME: GERI ASNCHEZ. : 1950 SEX: F STUDY DATE/TIME: 10/13/2016 1:49 UNIT: [facility] ROOM: [facility] STUDY DESCRIPTION: CR Shoulder Min 2 View Lt Attending Physician: Liset Valerio M.D. Ordering Physician: Denny Nj M.D. Primary Care Physician: Denny Bolanos Jr., M.D. MEDICAL IMAGING REPORT This report is preliminary unless electronic signature is present EXAM 3 views of the left shoulder. DATE: 10/13/2016 HISTORY Left shoulder pain after falling on driveway today. FINDINGS There is a transversely origin displaced fracture of the left humeral neck with volar displacement of the humeral shaft with respect to the humeral head. The humeral head appears potentially comminuted. There is a left shoulder joints effusion or hemarthrosis. No gross humeral head dislocation is identified. No acromioclavicular or coracoclavicular separation is seen. Imaged left ribs appear intact. IMPRESSION Displaced fracture of the left humeral neck with suspected comminution of the humeral head. Left shoulder joint effusion or hemarthrosis is thought to be present. No gross glenohumeral dislocation is identified. Dictated by... Isha Deshpande M.D. THIS IS AN ELECTRONICALLY VERIFIED REPORT Isha Deshpande M.D. at 10/14/2016 10:00 PM AYAH/timbo TD: 10/13/2016 07:39 JOB #: [id number] MEDICAL IMAGING REPORT Page 1 of 1 COPY
--- NOTE | ~2016-10-12 | CR72 ---
[facility] A Service of [facility] RADIOLOGY TEXT RESULTS PATIENT: GERI SANCHEZ LOCATION: [facility] CICCU07-21 : [birth year] UNIT #: [id number] AGE: [address]: Tasha Mehta MD SEX: F ORDER DR: [id number] [facility] [address] [place], [place] [address] [id number] I MR#: [id number] Acc #: [id number] NAME: GERI SANCHEZ. : 1950 SEX: F STUDY DATE/TIME: 10/17/2016 12:48 UNIT: [facility] ROOM: [facility] STUDY DESCRIPTION: CR Chest Single View Portable Attending Physician: Tasha Mehta M.D. Ordering Physician: Tasha Mehta M.D. Primary Care Physician: Denny Bolanos Jr., M.D. MEDICAL IMAGING REPORT This report is preliminary unless electronic signature is present EXAM Portable chest x-ray, 10/17/2016. HISTORY Postop. TECHNIQUE AP radiograph of the chest in right anterior oblique projection presented. COMPARISON 10/16/2016 FINDINGS Status post bilateral shoulder arthroplasty. The right shoulder arthroplasty is new today. Please see dedicated right shoulder series for further assessment. Interval placement of right internal jugular central venous catheter that terminates in the upper to mid superior vena cava. Lung volumes are very low, lower than on prior study, with central bronchovascular crowding. There is no compelling evidence of acute infectious or inflammatory disease. No pleural effusion or pneumothorax. No suspicious nodule. Bowel gas pattern in upper abdomen within normal limits. Partial visualization of abdominal surgical mesh markers. Dictated by... Denny Quinn M.D. THIS IS AN ELECTRONICALLY VERIFIED REPORT Denny Quinn M.D. at 10/17/2016 6:48 PM JSK/mariana [facility] A Service of [facility] RADIOLOGY TEXT RESULTS PATIENT: GERI SANCHEZ [facility] [birth year] UNIT #: [id number] AGE: [address]: Tasha Mehta MD SEX: F ORDER DR: TD: 10/17/2016 15:54 JOB #: [id number] MEDICAL IMAGING REPORT Page 1 of 1 COPY
--- NOTE | ~2016-10-12 | CR156 ---
[facility] A Service of [facility] RADIOLOGY TEXT RESULTS PATIENT: GERI SANCHEZ LOCATION: [facility] 449 : [birth year] UNIT #: [id number] AGE: [address]: Tasha Mehta MD SEX: F ORDER DR: [id number] [facility] [address] [place], [place] [address] [id number] I MR#: [id number] Acc #: [id number] NAME: GERI SANCHEZ. : 1950 SEX: F STUDY DATE/TIME: 10/13/2016 1:53 UNIT: [facility] ROOM: [facility] STUDY DESCRIPTION: CR Humerus Min 2 View Lt Attending Physician: Liset Valerio M.D. Ordering Physician: Denny Nj M.D. Primary Care Physician: Denny Bolanos Jr., M.D. MEDICAL IMAGING REPORT This report is preliminary unless electronic signature is present EXAM 2 views left humerus. Date: 10/13/2016 HISTORY Left shoulder pain after falling on driveway tonight. COMPARISON None. FINDINGS There is a transversely oriented fracture of the left humeral neck with displacement of the humeral shaft in a volar direction. Suspected comminution of the humeral head. Suspected left shoulder joint effusion. No gross dislocation is identified. IMPRESSION 1. Displaced fracture of the left humeral neck with suspected comminution of the humeral head. No gross glenohumeral dislocation. 2. Suspected left shoulder joint effusion or hemarthrosis. 3. Elbow joint appears intact. Dictated by... Isha Deshpande M.D. THIS IS AN ELECTRONICALLY VERIFIED REPORT Isha Deshpande M.D. at 10/14/2016 10:00 PM AYAH/ban TD: 10/13/2016 07:38 JOB #: [id number] [facility] A Service [facility] RADIOLOGY TEXT RESULTS PATIENT: GERI SANCHEZ LOCATION: [facility] : 46 UNIT #: [id number] AGE: [address]: Tasha Mehta MD SEX: F ORDER DR: MEDICAL IMAGING REPORT Page 1 of 1 COPY
--- NOTE | ~2016-10-12 | DS ---
Unit #: [id number] #: [id number] Patient: GERI SANCHEZ [id number] [address] [place], [place] [address] [id number] I MR#: [id number] NAME: GERI SANCHEZ. ROOM: 461 Age: 65 Sex: F Admission Date: 10/13/2016 : 1950 Discharge Date: Attending Physician: Tasha Mehta M.D. Primary Care Physician: Denny Bolanos Jr., M.D. DISCHARGE SUMMARY DISCHARGE DIAGNOSES 1. Bilateral humeral neck fractures. 2. Status post fall. 3. Acute postoperative hypercapnic, hypoxic respiratory failure. 4. Acute postoperative blood loss anemia. 5. Hyponatremia, likely hypovolemic. 6. Acute hypovolemic shock requiring Matthew-Synephrine. 7. Transaminitis. 8. Possible obstructive sleep apnea. 9. History of asthma. 10. Mild acute rhabdomyolysis present on admission. 11. Gastroesophageal reflux disease. 12. Hypertension, uncontrolled. 13. Chronic pain. 14. Morbid obesity. 15. Hypocalcemia. 16. Mild protein malnutrition. CONSULTATIONS 1. Dr. Phi Ontiveros. 2. Dr. Moyre. PROCEDURES Bilateral reverse shoulder arthroplasties and left shoulder biceps tenodesis. DIAGNOSTIC STUDIES LABORATORY: WBC 9, hemoglobin 7.9, and platelets 314,000. Sodium 128, potassium 4, creatinine 0.6, albumin 2.4, and calcium 7.9. Acute hepatitis panel negative. IMAGING: Ultrasound of the gallbladder shows liver enlarged, fatty liver, status post cholecystectomy. No intrahepatic ductal dilatation. Extrahepatic duct prominent about 1 cm in diameter felt within normal limits. Chest x-ray shows no infiltrates. ALLERGIES Sulfa and lovastatin. DISCHARGE MEDICATIONS 1. DuoNebs 3 mL inhalation q.4 p.r.n. shortness of breath. 2. Atrovent 1 spray nasally daily. 3. Lyrica 50 mg p.o. b.i.d. 4. Cymbalta 30 p.o. b.i.d. Unit #: [id number] #: [id number] Patient: GERI SANCHEZ 5. Dulera 100 mcg 2 puffs inhalation b.i.d. 6. MiraLax 17 grams daily. 7. Senna 1 tablet p.o. b.i.d. 8. Fish oil 1000 mg p.o. daily. 9. Multivitamin 1 tablet daily. 10. Oxycodone 5 mg q.6 p.r.n. pain. 11. Vitamin B12 at 1000 mcg p.o. daily. HOSPITAL COURSE A 65-year-old admitted because of fall and bilateral humeral fractures. Bilateral humeral fractures. Patient was seen by Orthopedics. Patient had bilateral reverse shoulder arthroplasties on two separate days. Currently, she is following with physical therapy. She is being discharged to rehab. Pain is well controlled. Continue with oxycodone. Acute postoperative hypercapnic, hypoxic respiratory failure. Patient is currently on oxygen. I am going to wean her off. I do not think she needs oxygen, but I am going to check oxygen needs. Acute postop blood loss anemia. Patient's hemoglobin is 7.9. Currently, no active bleeding. Monitor. Acute hypovolemic shock postop. Patient received Matthew-Synephrine and IV fluids. Currently, blood pressure is stable. Transaminitis most likely from acute rhabdomyolysis. Her acute hepatitis panel is negative and ultrasound is negative. Liver enzymes are normalized. Patient's ultrasound shows fatty liver. Hyponatremia, most likely hypovolemic. Patient will have a BMP checked in one week's time at rehab and follow with results. Patient received IV fluids during the hospitalization course. Possible obstructive sleep apnea. Follow with Dr. Moyer as an outpatient. Discussed with family. DISPOSITION Patient will be discharged to rehab. DISCHARGE INSTRUCTIONS BMP to be checked on October 24, 2016, and follow with Jessica at rehab for hyponatremia. Discharge time taken is 32 minutes. Dictated by... Jessica Murphy TD: 10/20/2016 15:19 JOB #: [id number] Unit #: [id number] #: [id number] Patient: GERI SANCHEZ DISCHARGE SUMMARY Page 1 of 1 X Tasha Mehta MD DISCHARGE SUMMARY
--- NOTE | ~2016-10-12 | HP ---
Unit #: [id number] #: [id number] Patient: GERI SANCHEZ [id number] [address] [place], [place] [address] [id number] I MR#: [id number] NAME: GERI SANCHEZ. ROOM: [facility] Age: 65 Sex: F Admission Date: 10/13/2016 : 1950 Attending Physician: Liset Valerio M.D. Primary Care Physician: Denny Bolanos Jr., M.D. HISTORY AND PHYSICAL CHIEF COMPLAINT Mechanical fall with bilateral humeral neck fractures. HISTORY This 65-year-old female with hypertension, chronic pain, morbid obesity, is admitted following bilateral humeral neck fractures. At about 10:30 last evening, the patient went outside to catch her cat. She was bringing the cat inside when she lost her balance and fell forward onto her shoulders bilaterally. Was unable to move her arms, and the left shoulder hurts more than the right with some pain in the left forearm. She presented to this emergency department late last evening where x-rays demonstrate bilateral humeral neck fractures. She was given two doses of morphine 4 mg, along with Zofran and still is in considerable pain. She has a good grasp bilaterally with good radial pulse bilaterally. However, she is not going to be able to care for herself as she is unable to move her arms, and she is experiencing intractable pain. PAST MEDICAL HISTORY 1. Questionable TIA versus complicated migraine in the . 2. Essential hypertension. 3. Chronic pain. 4. GERD. 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 6. Trigeminal neuralgia. 7. Occipital neuralgia. 8. History of migraines. 9. Hemifacial spasm. 10. Paroxysmal hemicranias. 11. Essential tremor. 12. Right carpal tunnel release. 13. Cholecystectomy. 14. Multiple benign breast biopsies. 15. Bilateral knee surgeries. 16. Back surgery. 17. Multiple ventral hernia repairs. 18. Arthroscopic rotator cuff repair. ALLERGIES Intolerant to sulfa, Mevacor. Oxycodone and codeine cause nausea. HOME MEDICATIONS 1. Diovan/hydrochlorothiazide 160/12.5 mg daily. 2. Lyrica 75 mg t.i.d. Unit #: [id number] #: [id number] Patient: GERI SANCHEZ 3. Cymbalta 30 mg, two tablets daily. 4. Dulera 100 mcg, two puffs b.i.d. 5. Atrovent nasal spray. 6. Vitamin B12, 1000 mcg daily. 7. Co Q-10 100 mg daily. 8. Multivitamin daily. 9. Tzci-vhp-tmmwdea potassium. 10. Fish oil 1200 mg daily. 11. Dymista, one spray each nostril b.i.d. FAMILY HISTORY CAD. SOCIAL HISTORY The patient lives with her and daughter. She is a lifelong nonsmoker, does not drink alcohol. REVIEW OF SYSTEMS Notable for bilateral shoulder pain after fall, above mentioned surgeries, chronic pain, DJD, GERD, possible asthma, hypertension, trigeminal and occipital neuralgia, history of migraines and essential tremor. All other systems were reviewed and are otherwise negative. PHYSICAL EXAMINATION GENERAL APPEARANCE: Pleasant, morbidly obese 65-year-old female who looks to be uncomfortable. VITAL SIGNS: Temperature 98, pulse 80, respirations 16, blood pressure 132/89. O2 saturation is 96% on room air. HEENT: Eyes PERRLA. Extraocular muscles are intact. Pharynx - dry mucosal membranes. NECK: Supple without adenopathy or thyromegaly. CHEST: Clear on patient's supine exam. CARDIAC: Normal S1 and S2 without murmur. ABDOMEN: Bowel sounds are present. No hepatosplenomegaly, tenderness or masses. EXTREMITIES: Without pedal edema. Pedal pulses are present. No ulcers on the feet. The patient has good bilateral radial pulse. NEUROLOGIC EXAM: The patient is awake, alert, oriented. Cranial nerves reveal left lower facial droop. She has good grasp bilaterally although probably better on the right than the left. She is able to move her lower extremities. DIAGNOSTIC STUDIES LABORATORY: Admission labs - none are yet done. IMAGING: CT scan of the C-spine - moderate DJD. CT of the head - no acute disease. Left forearm is negative for fracture. Shoulders demonstrate bilateral humeral neck fractures. May be an effusion on the left as well. Chest x-ray - no acute disease. ASSESSMENT 1. Mechanical fall with bilateral humeral neck fractures. Unit #: [id number] #: [id number] Patient: GERI SANCHEZ 2. Essential hypertension. 3. Asthma. 4. Gastroesophageal reflux disease. 5. Chronic pain. 6. Morbid obesity. PLANS 1. Pain control, slings, orthopedic surgeon to see. 2. SCDs for DVT prophylaxis and low dose Lovenox as patient is at risk for DVTs. 3. Social work to see as patient will need inpatient rehab and physical therapy. 4. Check baseline labs this morning. Dictated by Jessica Sawant/moise TD: 10/13/2016 06:13 JOB #: [id number] HISTORY AND PHYSICAL Page 1 of 1 X Liset Valerio MD X HISTORY AND PHYSICAL
--- NOTE | ~2016-10-12 | CR229 ---
[facility]. [facility] A Service of [facility] RADIOLOGY TEXT RESULTS PATIENT: GERI SANCHEZ LOCATION[facility] 46 UNIT #: [id number] AGE: [address]: Tasha Mehta MD SEX: F ORDER DR: [id number] [facility] [address] [place], [place] [address] [id number] I MR#: [id number] Acc #: [id number] NAME: GERI SANCHEZ. : 1950 SEX: F STUDY DATE/TIME: 10/15/2016 12:32 UNIT: C4B ROOM: [facility] STUDY DESCRIPTION: CR Shoulder Min 2 View Lt Attending Physician: Tasha Mehta M.D. Ordering Physician: Phi Ontiveros M.D. Primary Care Physician: Denny Bolanos Jr., M.D. MEDICAL IMAGING REPORT This report is preliminary unless electronic signature is present EXAM Left shoulder series, 10/15/2016 HISTORY Postop total PACU back. Postop total shoulder today. FINDINGS AP and transscapular view of the left shoulder presented. The patient is status post left shoulder arthroplasty. Orthopedic hardware normally located and aligned. Acromioclavicular joint shows mild degenerative change but no acute abnormality. Soft tissue swelling in the operative bed. Small amount of air in operative bed. Surgical drain in operative bed. Visualized ribs intact. Visualized pulmonary parenchyma unremarkable. Dictated by... Denny Quinn M.D. THIS IS AN ELECTRONICALLY VERIFIED REPORT Denny Quinn M.D. at 10/16/2016 10:55 PM Hood TD: 10/15/2016 14:36 JOB #: [id number] MEDICAL IMAGING REPORT Page 1 of 1 COPY
--- NOTE | ~2016-10-12 | A ---
[facility] Nutrition Therapy DATE: 10/18/16 Patient: GERI SANCHEZ Physician: KRISTIE Address: [address] [place] [address] Room/Bed: [address], Zip: [place] [address] Admit Date: 10/13/16 Date of : [birth year] Height: 5 1 Weight: 240 108.9 NUTRITIONAL ASSESSMENT: REASON: LOS IN ICU ASSESSMENT PT IS 65 Y.O. FEMALE ADMITTED FOR (R) HUMERUS NECK FX S/P FALL, RESP FAILURE PMH: HTN, ASTHMA, TIA, GERD, BELLS PALSY (L) SIDE OF FACE, MIGRAINES, CHOLY Anthropometrics: 5'1", WT: 236# (107 KG), BMI: 44.6 Labs: GLU: 131, CA+:7.9, ALB: 2.4, ALT: 84, NA+:131 Meds: NACL, SENOKOT, MILK OF MAGNESIA, PHENERGAN, MIRALAX, VITAMIN B12, ZOFRAN I/O & Bowel function: 6240/1420 Skin Integrity: DRY SKIN NOTED ALL OVER BODY Assessment: CHART REVIEWED AND EVENTS NOTED. PT SEEN FOR LOS IN ICU (5 DAYS). PT SLEEPY/LETHARGIC AT TIME OF VISIT. DAUGHTER REPORTS PT TO HAVE DECREASED PO INTAKE 2' DECREASED APPETITE D/T PAIN S/P-SURGERIES. OF NOTE, PT NOTED TO HAVE BILATERAL PROXIMAL HUMERUS FRACTURES S/P FALL. DAUGHTER ADDS THAT PT IS A "FEEDER" AT THS TIME 2' UNABLE TO USE HER ARMS/HANDS. FAMILY STATES THAT PT HAS BEEN LOSING WEIGHT INTENTIONALLY FROM WALKING MORE AND COUNTING HER CALORIES. THIS RD ENCOURAGED SLOW GRADUAL PO INTAKE + SUPPLEMENT INTAKE FOR ADDITIONAL PROTEIN AND KCAL, PT AGREED TO ENSURE SHAKES BID, RD TO ORDER. PT AND DAUGHTER REPORTED NO DIET QUESTIONS AT THIS TIME. RD TO FOLLOW. Dx: INADEQUATE PROTEIN-ENERGY INTAKE R/T DECREASED APPETITE, CURRENT CONDITION AEB DAUGHTER REPORT ABOVE. Intervention: 1. REGULAR DIET 2. ENSURE SHAKES BID Monitoring, Evaluation and Goals: 1. ORAL INTAKE; CONSUME >50% OF MEALS AND SUPPLEMENTS W/NO C/O N/V/D 2. WEIGHTS; PROMOTE GRADUAL WEIGHT LOSS TOWARDS HEALTHY BMI 3. LABS; WNL 4. GI; PROMOTE REGULAR GI FUNCTION MONITOR: -PO INTAKE/APPETITE -SUPPLEMENT INTAKE -WEIGHTS [facility] Nutrition Therapy DATE: 10/18/16 Patient: GERI Haley LAURA Physician: KRISTIE Address: [address] [place] [address] Room/Bed: [address], Zip: [place] [address] Admit Date: 10/13/16 Date of : [birth year] Height: 5 1 Weight: 240 108.9 -LABS Recommendations: 1. PLEASE ORDER STRAWBERRY ENSURE SHAKES BID W/MEALS 2. APPRECIATE FAMILY AND STAFF TO ENCOURAGE SLOW GRADUAL PO INTAKE + ADEQUATE KCAL AND PROTEIN INTAKE FOR HEALING 3. CONSIDER ADDING MVI W/MINERAL TO PT'S CURRENT MEDICATION REGIMEN TO PROMOTE HEALING RD WILL F/U PER PROTOCOL PT IS MILDLY COMPROMISED Respectfully, JAE HERNANDEZ MS, RD, LD [facility] cc: client file
[~2016-10-12 23:59] MED LIST: ALBUTEROL17 GM INH; ALEVE220 M1 PO; ALLERGY INJECTIONS; CENTRUM SILVER PO; COQ-10200 MG PO; CYANOCOBALAM1000 MCG PO; CYMBALTA30 M1 PO; DIOVAN HCT 160/1 TAB PO; DIOVAN HCT 80/11 TAB; DULCOLAX5 MG PO; DULERA 100 MCG/13 GM INH; DYMISTA NASAL S23 GM; EFFEXOR XR PO; EVISTA60 M1 PO; FISH OIL 1,2001 EAC4 PO; FISH OIL SOFTGE1 CA1 PO; FLAXSEED OIL1000 M1 PO; HYDROCODON-ACE1 EAC5 PO; HYDROCODON-ACE1 EAC7 PO; HYDROCODON-ACE1 EAC9 PO; INDOMETHACIN25 MG PO; LOC PO; LYRICA; LYRICA PO; MULTIVITAMIN1 UDCAP PO; PAZEO2.5 ML OD; PHENERGAN25 MG PO; POTASSIUM GLUCONATE PO; PRAVASTATIN SOD20 MG PO; PREVACID PO; PROVENTIL INH0.5 ML INH; SYMBICORT INH; VITAMIN D-32000 UNI1 PO; VYTORIN 10/20 T1 TAB
[2016-10-13] MEDS ORDERED: ATROVENT 0.03%30 ML (06:42)
[2016-10-13 09:45] LABS: BASOPHIL% 0.4 % (0-2.5); EOSINOPHIL% 0.2 % (0.0-7.0); HEMATOCRIT 39.9 % (35.0-45.0); HEMOGLOBIN 13.4 gm/dL (12.0-16.0); LYMPHOCYTE# 0.8 X10e3 (1.0-3.5); LYMPHOCYTE% 12.8 % (17.0-45.0); MEAN CELL VOLUME 90.9 FL (83-96); MEAN CORPUSCULAR HEMOGLOBIN 30.4 PG (28-34); MEAN CORPUSCULAR HGB CONC 33.5 g/dL (30-36); MEAN PLATELET VOLUME 7.8 FL (6.5-11.5); MONOCYTE# 0.4 X10e3 (0-1.0); MONOCYTE% 7.2 % (3.0-12.0); NEUTROPHIL# 4.7 X10e3 (1.5-7.1); NEUTROPHIL% 79.4 % (40-75); PLATELET COUNT 251 X10e3 (140-420); RED BLOOD COUNT 4.39 X10e (3.90-5.30); RED CELL DISTRIBUTION WIDTH 13.8 % (11.0-15.5); WHITE BLOOD COUNT 5.9 X10e3 (4.0-10.5)
[2016-10-13 09:50] LABS: DIFF IND NO
[2016-10-13 10:42] LABS: ALBUMIN SERUM 3.9 g/dL (3.5-5.0); BILIRUBIN,TOTAL 1.1 mg/dL (0.2-2.0); BUN/CREATININE RATIO 26.25; CREATININE SERUM 0.8 mg/dL (0.6-1.4); GLOM FILT RATE Estimated 76.4 mL/min (>60); POTASSIUM 4.6 mmol/L (3.5-5.1); PROTEIN TOTAL SERUM 6.4 g/dL (6.0-8.3)
[2016-10-14 03:05] LABS: HEMATOCRIT 39.4 % (35.0-45.0); HEMOGLOBIN 12.8 gm/dL (12.0-16.0); MEAN CELL VOLUME 92.1 FL (83-96); MEAN CORPUSCULAR HGB CONC 32.6 g/dL (30-36); MEAN PLATELET VOLUME 8.3 FL (6.5-11.5); RED BLOOD COUNT 4.28 X10e (3.90-5.30); RED CELL DISTRIBUTION WIDTH 14.2 % (11.0-15.5); WHITE BLOOD COUNT 6.5 X10e3 (4.0-10.5)
[2016-10-14 03:34] LABS: BILIRUBIN,TOTAL 1.5 mg/dL (0.2-2.0); BUN/CREATININE RATIO 19.28; CALCIUM SERUM 8.8 mg/dL (8.4-10.2); CREATININE SERUM 1.4 mg/dL (0.6-1.4); GLOM FILT RATE Estimated 38.8 mL/min (>60); POTASSIUM 4.3 mmol/L (3.5-5.1); PROTEIN TOTAL SERUM 6.5 g/dL (6.0-8.3)
[2016-10-14 16:54] LABS: AMPHETAMINE NEG (NEG); BARBITURATES NEG (NEG); BENZODIAZEPINES NEG (NEG); COCAINE NEG (NEG); MARIJUANA NEG (NEG); OPIATES POS (NEG); TRICYCLIC ANTIDEPRESSANTS NEG (NEG); U METHADONE NEG (NEG)
[2016-10-15 01:36] LABS: BASOPHIL% 0.4 % (0-2.5); EOSINOPHIL# 0.1 X10e3 (0-0.7); EOSINOPHIL% 1.4 % (0.0-7.0); HEMATOCRIT 34.9 % (35.0-45.0); HEMOGLOBIN 11.6 gm/dL (12.0-16.0); LYMPHOCYTE# 1.2 X10e3 (1.0-3.5); LYMPHOCYTE% 14.9 % (17.0-45.0); MEAN CELL VOLUME 90.9 FL (83-96); MEAN CORPUSCULAR HEMOGLOBIN 30.3 PG (28-34); MEAN CORPUSCULAR HGB CONC 33.3 g/dL (30-36); MEAN PLATELET VOLUME 7.8 FL (6.5-11.5); MONOCYTE# 0.8 X10e3 (0-1.0); MONOCYTE% 9.1 % (3.0-12.0); NEUTROPHIL# 6.2 X10e3 (1.5-7.1); NEUTROPHIL% 74.2 % (40-75); PLATELET COUNT 227 X10e3 (140-420); RED BLOOD COUNT 3.84 X10e (3.90-5.30); WHITE BLOOD COUNT 8.3 X10e3 (4.0-10.5)
[2016-10-15 01:37] LABS: DIFF IND NO
[2016-10-15 02:04] LABS: ALBUMIN SERUM 3.6 g/dL (3.5-5.0); ALKALINE PHOSPHATASE 133 U/L (32-92); ALT (SGPT) 506 U/L (10-40); AST (SGOT) 163 U/L (10-42); BILIRUBIN,TOTAL 1.1 mg/dL (0.2-2.0); BLOOD UREA NITROGEN 24 mg/dL (9-23); BUN/CREATININE RATIO 26.66; CALCIUM SERUM 8.3 mg/dL (8.4-10.2); CARBON DIOXIDE 28 mmol/L (22-31); CHLORIDE 94 mmol/L (100-111); CREATININE SERUM 0.9 mg/dL (0.6-1.4); GLOM FILT RATE Estimated 66.2 mL/min (>60); GLUCOSE FASTING 141 mg/dL (70-110); POTASSIUM 3.8 mmol/L (3.5-5.1); PROTEIN TOTAL SERUM 6.2 g/dL (6.0-8.3); SODIUM 129 mmol/L (135-145)
[2016-10-15 02:06] LABS: ACETAMINOPHEN <10 ug/mL
[2016-10-15 14:48] LABS: ARTERIAL BLD GAS O2 SATURATION 90.3 % (90.0-100.0); ARTERIAL BLOOD GAS ALLEN TEST POS; ARTERIAL BLOOD GAS ART SITE RIGHT RADIAL; ARTERIAL BLOOD GAS CARBOXY HB 0.7 %sat (0.0-9.0); ARTERIAL BLOOD GAS DELIVERY VENTURI MASK; ARTERIAL BLOOD GAS HCO3 27.9 mmol/L; ARTERIAL BLOOD GAS PCO2 47.2 mmHg (35.0-45.0); ARTERIAL BLOOD GAS PO2 63.5 mmHg (80.0-100); ARTERIAL DRAW? YES
[2016-10-15 20:03] LABS: %MB 2.7 % (0.0-4.0); MB 15.1 ng/ml
[2016-10-16 02:20] LABS: %MB 2.7 % (0.0-4.0); MB 18.4 ng/ml
[2016-10-16 05:32] LABS: BASOPHIL% 0.4 % (0-2.5); EOSINOPHIL% 0.2 % (0.0-7.0); HEMATOCRIT 31.2 % (35.0-45.0); HEMOGLOBIN 10.2 gm/dL (12.0-16.0); LYMPHOCYTE# 1.1 X10e3 (1.0-3.5); MEAN CORPUSCULAR HEMOGLOBIN 30.4 PG (28-34); MEAN CORPUSCULAR HGB CONC 32.6 g/dL (30-36); MONOCYTE% 9.5 % (3.0-12.0); NEUTROPHIL# 8.2 X10e3 (1.5-7.1); NEUTROPHIL% 78.9 % (40-75); PLATELET COUNT 246 X10e3 (140-420); RED BLOOD COUNT 3.35 X10e (3.90-5.30); RED CELL DISTRIBUTION WIDTH 14.1 % (11.0-15.5); WHITE BLOOD COUNT 10.3 X10e3 (4.0-10.5)
[2016-10-16 05:39] LABS: DIFF IND NO
[2016-10-16 06:16] LABS: BILIRUBIN,TOTAL 0.8 mg/dL (0.2-2.0); BUN/CREATININE RATIO 23.75; CALCIUM SERUM 8.2 mg/dL (8.4-10.2); CREATININE SERUM 0.8 mg/dL (0.6-1.4); GLOM FILT RATE Estimated 76.4 mL/min (>60); PROTEIN TOTAL SERUM 5.1 g/dL (6.0-8.3)
[2016-10-17 05:58] LABS: BASOPHIL% 0.4 % (0-2.5); EOSINOPHIL# 0.1 X10e3 (0-0.7); EOSINOPHIL% 1.1 % (0.0-7.0); HEMOGLOBIN 9.9 gm/dL (12.0-16.0); LYMPHOCYTE# 1.1 X10e3 (1.0-3.5); LYMPHOCYTE% 12.3 % (17.0-45.0); MEAN CELL VOLUME 91.4 FL (83-96); MEAN CORPUSCULAR HEMOGLOBIN 31.1 PG (28-34); MEAN PLATELET VOLUME 7.8 FL (6.5-11.5); MONOCYTE# 0.8 X10e3 (0-1.0); MONOCYTE% 9.4 % (3.0-12.0); NEUTROPHIL# 6.8 X10e3 (1.5-7.1); NEUTROPHIL% 76.8 % (40-75); PLATELET COUNT 235 X10e3 (140-420); RED BLOOD COUNT 3.18 X10e (3.90-5.30); RED CELL DISTRIBUTION WIDTH 13.7 % (11.0-15.5); WHITE BLOOD COUNT 8.9 X10e3 (4.0-10.5)
[2016-10-17 06:05] LABS: DIFF IND NO
[2016-10-17 07:01] LABS: BILIRUBIN,TOTAL 0.8 mg/dL (0.2-2.0); CALCIUM SERUM 8.4 mg/dL (8.4-10.2); CREATININE SERUM 0.6 mg/dL (0.6-1.4); GLOM FILT RATE Estimated 94.3 mL/min (>60); POTASSIUM 4.2 mmol/L (3.5-5.1); PROTEIN TOTAL SERUM 5.7 g/dL (6.0-8.3)
[2016-10-17 08:51] LABS: HA AB IGM (HEPPAN) Nonreactive (()); HB CORE AB IGM (HEPPAN) Nonreactive (Nonreactive); HB S AG (HEPPAN) Nonreactive (Nonreactive); HEP C AB (HEPPAN) Nonreactive (Nonreactive)
[2016-10-17 10:28] LABS: HEMATOCRIT 29.6 % (35.0-45.0); HEMOGLOBIN 8.9 gm/dL (12.0-16.0)
[2016-10-17 17:09] LABS: BASOPHIL% 0.2 % (0-2.5); DIFF IND YES; HEMATOCRIT 28.2 % (35.0-45.0); HEMOGLOBIN 9.4 gm/dL (12.0-16.0); LYMPHOCYTE# 0.8 X10e3 (1.0-3.5); LYMPHOCYTE% 5.8 % (17.0-45.0); MEAN CELL VOLUME 89.1 FL (83-96); MEAN CORPUSCULAR HEMOGLOBIN 29.7 PG (28-34); MEAN CORPUSCULAR HGB CONC 33.3 g/dL (30-36); MONOCYTE# 0.7 X10e3 (0-1.0); NEUTROPHIL# 11.5 X10e3 (1.5-7.1); PLATELET COUNT 220 X10e3 (140-420); RED BLOOD COUNT 3.16 X10e (3.90-5.30); RED CELL DISTRIBUTION WIDTH 14.8 % (11.0-15.5); WHITE BLOOD COUNT 12.9 X10e3 (4.0-10.5)
[2016-10-17 17:31] LABS: PLATELET ESTIMATE NORMAL (NORMAL)
[2016-10-18 05:55] LABS: BASOPHIL% 0.4 % (0-2.5); EOSINOPHIL# 0.1 X10e3 (0-0.7); EOSINOPHIL% 0.9 % (0.0-7.0); HEMATOCRIT 25.8 % (35.0-45.0); HEMOGLOBIN 8.8 gm/dL (12.0-16.0); LYMPHOCYTE% 12.8 % (17.0-45.0); MEAN CELL VOLUME 89.4 FL (83-96); MEAN CORPUSCULAR HEMOGLOBIN 30.3 PG (28-34); MEAN CORPUSCULAR HGB CONC 33.9 g/dL (30-36); MEAN PLATELET VOLUME 8.1 FL (6.5-11.5); MONOCYTE# 0.7 X10e3 (0-1.0); NEUTROPHIL% 76.9 % (40-75); PLATELET COUNT 231 X10e3 (140-420); RED BLOOD COUNT 2.89 X10e (3.90-5.30); RED CELL DISTRIBUTION WIDTH 14.9 % (11.0-15.5); WHITE BLOOD COUNT 7.8 X10e3 (4.0-10.5)
[2016-10-18 06:04] LABS: DIFF IND NO
[2016-10-18 07:13] LABS: ALBUMIN SERUM 2.4 g/dL (3.5-5.0); BILIRUBIN,TOTAL 0.5 mg/dL (0.2-2.0); CALCIUM SERUM 7.9 mg/dL (8.4-10.2); CREATININE SERUM 0.6 mg/dL (0.6-1.4); GLOM FILT RATE Estimated 94.3 mL/min (>60); PROTEIN TOTAL SERUM 4.8 g/dL (6.0-8.3)
[2016-10-20 03:04] LABS: BASOPHIL% 0.3 % (0-2.5); EOSINOPHIL# 0.2 X10e3 (0-0.7); EOSINOPHIL% 2.2 % (0.0-7.0); HEMATOCRIT 23.7 % (35.0-45.0); HEMOGLOBIN 7.9 gm/dL (12.0-16.0); LYMPHOCYTE# 1.4 X10e3 (1.0-3.5); LYMPHOCYTE% 15.6 % (17.0-45.0); MEAN CELL VOLUME 89.4 FL (83-96); MEAN CORPUSCULAR HEMOGLOBIN 29.8 PG (28-34); MEAN CORPUSCULAR HGB CONC 33.3 g/dL (30-36); MEAN PLATELET VOLUME 7.6 FL (6.5-11.5); MONOCYTE# 0.6 X10e3 (0-1.0); MONOCYTE% 6.7 % (3.0-12.0); NEUTROPHIL# 6.7 X10e3 (1.5-7.1); NEUTROPHIL% 75.2 % (40-75); PLATELET COUNT 314 X10e3 (140-420); RED BLOOD COUNT 2.65 X10e (3.90-5.30); RED CELL DISTRIBUTION WIDTH 14.6 % (11.0-15.5)
[2016-10-20 03:06] LABS: DIFF IND YES
[2016-10-20 03:21] LABS: BUN/CREATININE RATIO 26.66; CALCIUM SERUM 7.9 mg/dL (8.4-10.2); CREATININE SERUM 0.6 mg/dL (0.6-1.4); GLOM FILT RATE Estimated 94.3 mL/min (>60)
[2016-10-20 03:28] LABS: ANISOCYTOSIS SL; PLATELET ESTIMATE NORMAL (NORMAL)
[2016-10-20 03:30] LABS: STOMATOCYTE PRESENT
== END 2016-10-20 19:20 | DRG 483 ==
LOC: CED 23:59 → CEDOF 10-13 04:00 → C4B 10-13 06:08 → CICCU2 10-15 18:02 → CICCU3 10-18 06:03 → C4C 10-18 18:28
PROVIDERS: Emergency Medicine; Internal Medicine; Orthopaedic Surgery
PROC: 0RRK00Z Replacement of Left Shoulder Joint with Reverse Ball and Socket Synthetic Substitute, Open Approach (ICD-10-PCS; principal; 2016-10-15 07:30)
PROC: 0RRJ00Z Replacement of Right Shoulder Joint with Reverse Ball and Socket Synthetic Substitute, Open Approach (ICD-10-PCS; 2016-10-17 07:30)
DX: S42.242A 4-part fracture of surgical neck of left humerus, initial encounter for closed fracture (principal); R57.1 Hypovolemic shock; J96.01 Acute respiratory failure with hypoxia; J96.02 Acute respiratory failure with hypercapnia; I95.9 Hypotension, unspecified; K76.0 Fatty (change of) liver, not elsewhere classified; E87.1 Hypo-osmolality and hyponatremia; S42.231A 3-part fracture of surgical neck of right humerus, initial encounter for closed fracture; D62 Acute posthemorrhagic anemia; Z68.41 Body mass index [BMI] 40.0-44.9, adult; E44.1 Mild protein-calorie malnutrition; W19.XXXA Unspecified fall, initial encounter; Y92.009 Unspecified place in unspecified non-institutional (private) residence as the place of occurrence of the external cause; R74.0 Nonspecific elevation of levels of transaminase and lactic acid dehydrogenase [LDH]; G47.33 Obstructive sleep apnea (adult) (pediatric); T79.6XXA Traumatic ischemia of muscle, initial encounter; K21.9 Gastro-esophageal reflux disease without esophagitis; I10 Essential (primary) hypertension; G89.29 Other chronic pain; E66.01 Morbid (severe) obesity due to excess calories; E83.51 Hypocalcemia; G51.0 Bell's palsy; J45.909 Unspecified asthma, uncomplicated; Z90.49 Acquired absence of other specified parts of digestive tract; Z88.5 Allergy status to narcotic agent; Z88.2 Allergy status to sulfonamides; Z88.8 Allergy status to other drugs, medicaments and biological substances; Z82.49 Family history of ischemic heart disease and other diseases of the circulatory system
CPT/HCPCS: 36600; 70450; 71010; 72125; 73030; 73060; 73090; 73200; 76000; 76705; 80048; 80053; 80074; 80307; 82550; 82553; 82803; 82947; 84484; 85014; 85018; 85025; 85027; 85610; 86850; 86900; 86901; 86923; 93005; 94640; 94664; 94760; 96374; 96375; 96376; 97116; 97162; 97167; 97530; 99285; C1776; G0480; G8978-GP; G8979-GP; G8980-GP; G8987-GO; G8988-GO; J0330; J0690; J0735; J1100; J1170; J1650; J2250; J2270; J2370; J2405; J2710; J2795; J3010; P9016